=== PATIENT | male | born 1960 | race Caucasian/White ===

== ENCOUNTER 2020-01-01 10:32 | Outpatient (CLI) | payer OTHER, SELFPAY ==
--- NOTE | 2020-01-01 | EST_ITS ---
Patient Info Name: Samuel Malik Age: 59 years : 1960 Gender: Male Ht: 64 in Wt: 158 lbs BSA: 1.82 m2 Exam Date: 01/01/2020 12:33 PM Exam Location: [facility] Stress Patient Status: Outpatient Admit Date: 01/01/2020 Staff Ordering Physician: Choco, Kushal Wylie MD Attending Provider: Choco, Kushal Wylie MD Exercise Technologist: Burke Farrell, RDCS, RT Nurse: Andreina Murphy, MARILYN, ACNP-BC Exam Type: CA stress carina w NM Study Info A regadenoson stress test was performed. Summary 1. No abnormal ST-T wave changes with lexiscan. 2. Please correlate with nuclear medicine images, reported separately. Protocol: Lexiscan Stress ECG Details Stage: REST Duration (min): 1 min : 58 sec HR (bpm): 50 SBP (mmHg): 119 DBP (mmHg): 83 Stage: REST Duration (min): 8 min : 10 sec HR (bpm): 53 SBP (mmHg): 119 DBP (mmHg): 83 Stage: STAGE 1 Duration (min): 0 min : 59 sec HR (bpm): 61 SBP (mmHg): 131 DBP (mmHg): 68 Stage: RECOVERY Duration (min): 1 min : 0 sec HR (bpm): 69 SBP (mmHg): 131 DBP (mmHg): 68 Stage: RECOVERY Duration (min): 2 min : 0 sec HR (bpm): 66 SBP (mmHg): 124 DBP (mmHg): 71 Stage: RECOVERY Duration (min): 3 min : 0 sec HR (bpm): 70 SBP (mmHg): 145 DBP (mmHg): 89 Stage: RECOVERY Duration (min): 4 min : 0 sec HR (bpm): 65 SBP (mmHg): 145 DBP (mmHg): 89 Stage: RECOVERY Duration (min): 4 min : 53 sec HR (bpm): 66 SBP (mmHg): 128 DBP (mmHg): 88 Rest HR: 53 bpm Peak HR: 71 bpm Rest Sys BP: 119 mmHg Peak Sys BP: 145 mmHg Max Pred HR: 162 bpm % Max Pred HR: 44 % Target HR: 138 bpm Max RPP: 10,295 bpm*mmHg Termination Reason: Completed protocol Cardiac Symptoms: Shortness of breath Total Time: 1 min : 0 sec Rest Zheng BP: 83 mmHg Peak Zheng BP: 89 mmHg Total Dose: 0.4 mg Resting ECG Sinus bradycardia. Stress ECG No abnormal ST/T wave changes with exercise. Arrhythmias None. Report Signatures
--- NOTE | 2020-01-01 | ECHO_ITS ---
Patient Info Name: Samuel Malik Age: 59 years : 1960 Gender: Male Ht: 64 in Wt: 158 lbs BSA: 1.82 m2 HR: 55 bpm Heart Rhythm: Bradycardia Technical Quality: Good Exam Date: 01/01/2020 10:59 AM Exam Location: [facility] Patient Status: Outpatient Admit Date: 01/01/2020 Staff Ordering Physician: Choco, Kushal Wylie MD Application Consultant: Abundio Rodriguez RDCS Attending Provider: Choco, Kushal Wylie MD Referring Physician: Choco WICK; Exam Type: CA echo doppler color flow Study Info Indications R06.02 - Shortness of breath Complete two-dimensional, color flow and Doppler transthoracic echocardiogram is performed. Strain analysis performed. History/Risk Factors Shortness of breath; pre-op clearance for surgery. Summary 1. Left ventricular wall thickness, systolic function and diastolic function are normal with no regional wall motion abnormalities with an estimated ejection fraction of 60-65%. The global longitudinal strain was -19%, consistent with normal left ventricular systolic function. 2. Right ventricular chamber dimension is mildly enlarged with normal systolic function. 3. No significant valvular heart disease. 4. Normal sinus rhythm. Left Ventricle Left ventricular chamber dimension is normal. Left ventricular systolic function is normal, estimated at 60-65%. There is no increased left ventricular wall thickness. Left ventricular septal wall motion is normal. The left ventricular diastolic function is normal. Global longitudinal strain is normal at 19 %. Left ventricular wall thickness, systolic function and diastolic function are normal with no regional wall motion abnormalities with an estimated ejection fraction of 60-65%. The global longitudinal strain was -19%, consistent with normal left ventricular systolic function. Right Ventricle Right ventricular chamber dimension is mildly enlarged with normal systolic function. Right ventricular systolic function is normal. Left Atria Left atrial chamber dimension is normal. Right Atria Right atrial chamber dimension is normal. Aortic Valve The aortic valve is trileaflet. There is no aortic valve sclerosis. There is no aortic valve stenosis. There is no aortic valve regurgitation. Pulmonic Valve The pulmonic valve is normal. There is no pulmonic valve stenosis. There is no pulmonic regurgitation. Mitral Valve The mitral valve has normal leaflets. There is no mitral valve stenosis. There is trace mitral valve regurgitation. Tricuspid Valve The tricuspid valve leaflets are normal. There is no significant tricuspid valve stenosis. There is trace tricuspid valve regurgitation. No pulmonary hypertension, estimated pulmonary arterial systolic pressure is Empty. Pericardium/Pleural The pericardium appears normal. There is no pericardial effusion. Inferior Vena Cava Normal inferior vena cava with >50% collapse upon inspiration consistent with Empty right atrial pressure, 5 mmHg. Aorta The aortic root size at the sinus of Valsalva is normal. The prox ascending aorta size is normal. Left Ventricular Outflow Tract Name Value Normal LVOT 2D LVOT Diameter 1.9 cm
--- NOTE | ~2020-01-01 | NM_ITS ---
EXAMINATION: NM carina stress w perfusion DATE: 01/01/2020 13:40 INDICATION: Shortness of breath. Near syncope. TECHNIQUE: Rest images were obtained following intravenous administration of 8.9 mCi Tc99m tetrofosmi n (Myoview). The patient was infused intravenously with Lexiscan (regadenoson). Then, 30.8 mCi Tc99m tetrofosmin (Myoview) was administered intravenously, and stress images were obtained. Data was recon structed into short axis and horizontal and vertical long axis SPECT images. Gated SPECT images were also obtained. COMPARISON: Chest CT 05/09/2014 FINDINGS: There is no definite reversible or fixed perfusion abnormality to suggest ischemia or infar ction. There is no segmental wall motion abnormality. Left ventricular ejection fraction measures 6 9%. IMPRESSION: 1. No definite ischemia or infarct. 2. Normal left ventricular ejection fraction measuring 69%. Reviewed, dictated and finalized at location A.
== END 2020-01-01 10:33 | disposition home or self-care (01) ==
PROVIDERS: PCP Internal Medicine; Visit Provider Internal Medicine Cardiovascular Disease
DX: R06.02 Shortness of breath (principal); R42 Dizziness and giddiness; R55 Syncope and collapse
CPT/HCPCS: 78452; 93017; 93306; A9502; J2785

== ENCOUNTER 2022-12-14 12:51 | Outpatient (CLI) | payer OTHER, SELFPAY ==
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
== END 2022-12-14 12:52 | disposition home or self-care (01) ==
LOC: ANHNEURO 12:52
PROVIDERS: PCP Internal Medicine; Visit Provider Internal Medicine
DX: R56.9 Unspecified convulsions (principal); R94.01 Abnormal electroencephalogram [EEG]
CPT/HCPCS: 95816

== ENCOUNTER 2023-02-14 13:30 | Outpatient (RCR) | payer OTHER, SELFPAY ==
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
--- NOTE | 2022-12-15 15:26 | OTOPPROG ---
Assessment and note entered by Joshua Darnell, ANTONIO/Dennys, CHT Evaluation Information Assessment Status Progress Diagnosis Myofascial muscle pain, spastic hemiplegia left side Onset Sep 2021 Subjective Information Patient and son reports he is doing better with everything . He is using that hand to help with ADLs. 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 His daughter is reporting seeing him do more for himself is very encouraging. He went to [place] for the first time in a year - he is getting out more and more mobile. He is no longer having pain in the left UE. Previously he was having pain all the time . Assessment OT Clinical Summary Patient has been attending outpatient OT x3 weeks. He has good family support that helps with HEP carryover. The patient and family report he is actively using the left arm more and having less pain. We were unable to complete MMT at the initial evaluation due to pain. He is making progress with functional ROM and strength in all joints of the left UE. He will benefit from continued skilled OT progress ROM, strength, and use of the left UE through HEP instruction and progression, therapeutic exercise, manual therapy, neuro re-ed, therapeutic activities, modalities, and positioning education. Plan of Care Interventions Therapeutic Exercise,Manual Therapy,Neuro Re- education,Therapeutic Activities,Hot Pack/Cold Pack,Electrical Stimulation OT Services Indicated Yes Treatment Frequency and 2x/week for 4 weeks, staring the week of 01/02/23. Duration These treatments will address the objective and functional deficits as defined above. The patient will be advanced safely and appropriately in order for the patient to progress towards his/her prior level of function. Additional exercises will be introduced and as well as a comprehensive home exercise program upon discharge, if needed, ?to ensure carryover of functional gains achieved in the clinic. This treatment plan has been reviewed and agreement upon by the patient.
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
--- NOTE | 2022-12-15 16:47 | PCPTNOTE ---
assistant track coach, Janine, asked physical therapist to rule out BPPV before physical therapist walked out the door as patient reports feeling dizzy. Patient has no issues with smooth pursuit, does have some blurriness with saccades and VOR. able to do Rhomberg eyes closed and on unfirm surface with eyes closed 30 seconds only using ankles mobility. No nystagmus or dizziness with V[place]urnum- Halpike to the R or the L side. Could be hypoactive vestibular, but does not appear to be BPPV.
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
--- NOTE | 2023-01-23 13:31 | OTOPPROG ---
Assessment and note entered by Joshua Darnell, ANTONIO/Dennys, CHT Evaluation Information Assessment Status Progress Diagnosis Myofascial muscle pain, spastic hemiplegia left side Onset Sep 2021 Subjective Information Patient and son reports he is doing better with everything . He is using that hand more to help with ADLs. He is using his left hand to hold onto a walker when walking, reaching into the fridge, reaching onto the countertops. He is no longer having constant pain in the left UE. Previously he was having pain all the time . He has progressed to being able to wear his resting hand splint for an hour at a time to help with the hand contractures. Assessment OT Clinical Summary Patient has been attending outpatient OT x6 weeks. He has good family support that helps with HEP carryover. The patient and family report he is actively using the left arm more and having less pain. We were unable to complete MMT at the initial evaluation due to pain. He is making progress with functional ROM and strength in all joints of the left UE. He will benefit from continued skilled OT progress ROM, strength, and use of the left UE through HEP instruction and progression, therapeutic exercise, manual therapy, neuro re-ed, therapeutic activites, modalities, and positioning education. Plan of Care Interventions Therapeutic Exercise,Manual Therapy,Neuro Re- education,Therapeutic Activities,Hot Pack/Cold Pack,Electrical Stimulation OT Services Indicated Yes Treatment Frequency and 1-2x/week for 4 weeks Duration These treatments will address the objective and functional deficits as defined above. The patient will be advanced safely and appropriately in order for the patient to progress towards his/her prior level of function. Additional exercises will be introduced and as well as a comprehensive home exercise program upon discharge, if needed, ?to ensure carryover of functional gains achieved in the clinic. This treatment plan has been reviewed and agreement upon by the patient.
--- NOTE | 2023-02-14 14:10 | OTOPDC ---
Assessment and note entered by Joshua Darnell, ANTONIO/Dennys, CHT Evaluation Information Assessment Status Discharge Diagnosis Myofascial muscle pain, spastic hemiplegia left side Onset Sep 2021 Subjective Information Patient and son reports he is doing better with everything . He is using the left hand more to help with ADLs, specifically with dressing. He is using his left hand to hold onto a walker when walking, reaching into the fridge, reaching onto the countertops. Previously he was having pain all the time . He is wearing his resting hand splint for an hour at a time to help with the hand contractures. Assessment OT Clinical Summary Patient has been attending outpatient OT x8 weeks. Unfortunately at this time we are reaching a progress plateau with the left UE. He has made excellent functional progress with ROM, strength, and use of the left UE since the start of care. Digits III-V on the left hand continue to have a flexion contracture at the MCP joint. He is still only able to tolerate about an hour wear time on his resting hand splint. The contracture straightened out only about 10 degrees at each joint since the last reassessment. They report they are supposed to get Botox injections for the contracture. I continue to recommend further evaluation of the sagittal bands as it appears the extensor mechanism has subluxed ulnarly. At this time, patient is currently independent with all HEPs to continue to build strength and work on functional ROM and flexibility. No further skilled OT indicated at this time. Plan of Care OT Services Indicated No
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
== END 2023-02-15 10:15 | disposition home or self-care (01) ==
LOC: ANHOT 13:30
PROVIDERS: PCP Internal Medicine; Visit Provider Internal Medicine
DX: M79.18 Myalgia, other site (principal); M54.16 Radiculopathy, lumbar region; G81.10 Spastic hemiplegia affecting unspecified side
CPT/HCPCS: 97110; 97113; 97116; 97162; 97165; 97530; 97763

== ENCOUNTER 2023-02-22 13:38 | Outpatient (CLI) | payer OTHER, SELFPAY ==
--- NOTE | ~2023-02-22 | XR_ITS ---
XR chest 2V DATE: 02/22/2023 14:06 INDICATION: Shortness of breath, lower extremity swelling for 3 to 4 days TECHNIQUE: AP and lateral views COMPARISON: 05/10/2014 portable AP chest FINDINGS: Borderline or mild cardiomegaly. Mild bibasilar infiltrate and/atelectasis. No pulmonary vascular congestion or any significant pleural effusion or any pneumothorax is noted. Degenerative spurring of the thoracic spine. Left glenohumeral joint replacement. Degenerative change at the right glenohumeral and bilateral, clavicular joints. IMPRESSION: Mild bibasilar infiltrate and/atelectasis Borderline or mild cardiomegaly Reviewed, dictated and finalized at location A.
== END 2023-02-22 13:39 | disposition home or self-care (01) ==
PROVIDERS: PCP Internal Medicine; Visit Provider Internal Medicine
DX: R06.02 Shortness of breath (principal); R91.8 Other nonspecific abnormal finding of lung field
CPT/HCPCS: 71046

== ENCOUNTER 2024-03-15 12:30 | Outpatient (RCR) | payer OTHER, SELFPAY ==
--- NOTE | 2023-12-28 15:58 | OPREHPOC ---
Outpatient Therapy Plan of Care This is a Multidisciplinary Plan of Care that may contain components documented by all disciplines (PT, OT, and ST.) PT Problem 1 PT Problem #1 Knowledge Deficit PT Goal 1 Goal Independent with HEP Target Visit 5 PT Problem 2 PT Problem #2 Impaired Strength PT Goal 1 Goal Improve [place] hip flexor strength to 4+/5 to improve foot clearance with gait Target Visit 10 PT Goal 2 Goal Improve [place] hip abduction strength to 4/5 to improve lateral stability with gait and ADLs Target Visit 10 PT Problem 3 PT Problem #3 Impaired Gait PT Goal 1 Goal Patient will demonstrate 250'+ distance in 2 minute walk test for improve gait stability, speed , and endurance for functional improvement Target Visit 10 PT Goal 1 Goal Demonstrate ability to performed supine to sit transfer without increased pain Target Visit 10
--- NOTE | 2023-12-28 15:58 | PTOPEVAL1 ---
Assessment and note entered by Simeon Liu, PT Evaluation Information Assessment Status Evaluation Diagnosis Sacroiliitis Onset September 2022 Subjective Information Reports that he has been walking with a walker but uses wheelchair for long distance. Reports that pain is a little bit of everywhere but really is radiating down his back. Feels he can only walk for short distance due to weak legs and pain. Gets pain with sitting and laying down as well at night. Left side feels like it weaker and harder to control. Feels like it is stiffening. He has had Botox injection in L UE for spasticity. Reported Pain Level Pain Score 8: Self Report Assessment PT Clinical Summary Patient presents with significant strength loss in [place] hips, greater on left. He has reportedly been ambulatory but with very little frequency. Patient will benefit from skilled therapy to promote improved hip strength, improved functional mobility, and develop pain relief program for back decompression. Plan of Care Interventions Gait Training,Manual Therapy,Mechanical Traction, Therapeutic Activities,Therapeutic Exercise PT Services Indicated Yes Treatment Frequency and 2x/week for 10 visits Duration These treatments will address the objective and functional deficits as defined above. The patient will be advanced safely and appropriately in order for the patient to progress towards his/her prior level of function. Additional exercises will be introduced and as well as a comprehensive home exercise program upon discharge, if needed, ?to ensure carryover of functional gains achieved in the clinic. This treatment plan has been reviewed and agreement upon by the patient.
--- NOTE | 2024-01-01 08:18 | PCPTNOTE ---
pt called and canceled today's treatment appt due to being ill.
--- NOTE | 2024-01-29 13:44 | PCPTNOTE ---
Patient did not show up for scheduled appointment this date. Called, unable to leave voicemail about missed appointment and upcoming appointment on 01/31/24 @ 12:30, due to Pt's mailbox being full.
--- NOTE | 2024-01-31 12:46 | PCPTNOTE ---
pt called and stated he would be late for appt; then called again 10 minutes later and canceled due to traffic--rescheduled appt.
--- NOTE | 2024-02-15 10:51 | OPREHPOC ---
Outpatient Therapy Plan of Care This is a Multidisciplinary Plan of Care that may contain components documented by all disciplines (PT, OT, and ST.) PT Problem 1 PT Problem #1 Knowledge Deficit PT Goal 1 Goal Independent with HEP Target Visit 16 Progress Met Comment 02-15-24 progress goal met; continue to progress education & HEP PT Goal 2 Target Visit 16 PT Problem 2 PT Problem #2 Impaired Strength PT Goal 1 Goal Improve [place] hip flexor strength to 4+/5 to improve foot clearance with gait Target Visit 16 Progress Partially Met Comment 02-15-24 progress goal partially met, requires verbal cues to clear foot with walking continue towards goal PT Goal 2 Goal Improve [place] hip abduction strength to 4/5 to improve lateral stability with gait and ADLs Target Visit 16 Progress Met Comment 02-15-24 progress goal met; PT Problem 3 PT Problem #3 Impaired Gait PT Goal 1 Goal Patient will demonstrate 250'+ distance in 2 minute walk test for improve gait stability, speed , and endurance for functional improvement Target Visit 16 Progress Not Met Comment 02-15-24 progress goal not met, improved to 190' continue towards goal PT Problem 4 PT Problem #4 Impaired Functional Mobility PT Goal 1 Goal Demonstrate ability to performed supine to sit transfer without increased pain Target Visit 16 Progress Not Met Comment 02-15-24 progress goal not met continues to have pain with transfer continue towards goal ADD goal: * Tinetti balance score of 16/28 * self assessment Oswestry rating of 70%
--- NOTE | 2024-02-15 10:52 | PTOPPROG ---
Assessment and note entered by Zulma Hernandez, PT Progress Report Assessment Status Progress Diagnosis Sacroilitis Onset September 2022 Subjective Information spend most of day in bed or recliner, walk 3-4 x/ day to bathroom or kitchen; doing exercises at home; going to go to pain management, also see neurologist; GOAL for therapy: get stronger; walk better; PAIN: range 6-9/10; low back on R and L sides-- bad brake lines, hurts; makes me grunt and breathe hard; decrease pain: take pain pills increase pain: walk 150' makes it worse; Assessment PT Clinical Summary Samuel has received 8 PT sessions. Compared to the initial evaluation: pain rating from 6-10/10 to 6-9/10 in lumbar-sacral; self assessment Oswestry from 72% to 82% limitation in activity level; Tinetti balance score from 7 to 11/28= high risk for falls; 2 minute walking test distance with wheeled walker, from 120' with one break to 190' without any breaks--pain increase to 8/10 with walking; in supine: R and L hip ROM without pain increase; increase strength of R and L LE with mat exercises; supine/sit transfer increases his pain. Education for HEP and correct gait pattern. The goals were partially met. Continue PT services. Plan of Care Interventions Electrical Stimulation,Hot Pack/Cold Pack,Manual Therapy,Neuro Re-education,Patient/Caregiver Education,Therapeutic Activities,Therapeutic Exercise,Ultrasound,Other Other Interventions taping [facility] PT Services Indicated Yes Treatment Frequency and 1-2x/wk for 8 visits Duration These treatments will address the objective and functional deficits as defined above. The patient will be advanced safely and appropriately in order for the patient to progress towards his/her prior level of function. Additional exercises will be introduced and as well as a comprehensive home exercise program upon discharge, if needed, ?to ensure carryover of functional gains achieved in the clinic. This treatment plan has been reviewed and agreement upon by the patient.
--- NOTE | 2024-02-23 12:05 | PCPTNOTE ---
Addendum entered by Zulma Hernandez, PT 02/23/24 13:10: pt called after appt time and rescheduled for later day appt. Original Note: pt did not show for appt;
--- NOTE | 2024-03-18 12:38 | PCPTNOTE ---
pt called and canceled today's reeval appt.
--- NOTE | 2024-03-21 11:58 | PCPTNOTE ---
This treatment is being continued on visit number [id number]. Please see documentation on both accounts to view progress. Completed interventions, outcomes, and problems have been marked as Inactive to facilitate the copying of the Care plan routine for recurring accounts.
== END 2024-03-20 11:39 | disposition home or self-care (01) ==
LOC: ANHPT 12:30
PROVIDERS: PCP Internal Medicine; Visit Provider Nurse Practitioner
DX: M46.1 Sacroiliitis, not elsewhere classified (principal)
CPT/HCPCS: 97014; 97110; 97116; 97161; 97530; G0283

== ENCOUNTER 2024-03-25 11:35 | Outpatient (RCR) | payer OTHER, SELFPAY ==
--- NOTE | 2024-03-21 12:02 | PCPTNOTE ---
This treatment is being continued FROM visit number [id number]. Please see documentation on both accounts to view progress. Completed interventions, outcomes, and problems have been marked as Inactive to facilitate the copying of the Care plan routine for recurring accounts.
--- NOTE | 2024-03-25 09:44 | PTOPDC ---
Assessment and note entered by Zulma Hernandez, PT Discharge Report Assessment Status Discharge Diagnosis Sacroilitis Onset September 2022 Subjective Information in the house, is using the walker and walking--not using wheelchair, house too small; walks probably 6x/day in the house; spends most of the day in bed, does go out and sit to watch TV with family; family assisting with home activities; agree to discharge from PT services. Reported Pain Level Pain Score Self Report Additional Pain Score Comments L low back, tight; is to get injections next week; pain range in the past week -04/30; increase pain: walking, doing exercises, stand up straight decrease pain: sit, rest, pain pills; Assessment PT Clinical Summary Samuel has received 16 PT sessions. Compared to the last progress report: pain rating from to -04/30; self assessment Oswestry rating from 82 to 76% limitation in activity level 2 minute walking test distance from 190' to 180' with wheeled walker; Tinetti balance/gait score is same at 07/18= high risk for falls; ambulates with wheeled walker, CGA for safety, with good step length,flexion and lateral lean of trunk to L increase strength of trunk and hips with supine and standing exercises; education complete for HEP and safety; continues to have SOB and fatigue with activity. Reinforced use of heat/ice for pain in back, position changes and stretching for pain management. The goals were partially met. He is about the same with activity level and pain rating. Discharge PT services. Plan of Care PT Services Indicated No
== END 2024-03-25 13:33 | disposition home or self-care (01) ==
LOC: ANHPT 11:35
PROVIDERS: PCP Internal Medicine; Visit Provider Nurse Practitioner
DX: M46.1 Sacroiliitis, not elsewhere classified (principal)
CPT/HCPCS: 97110; 97530